=== PATIENT | male | born 2000 | race Caucasian/White ===

== ENCOUNTER 2024-05-09 11:25 | Emergency (ER) | payer OTHER ==
[~2024-05-09] VITALS: Ht 172.7 cm; Wt 90.7 kg
[~2024-05-09 11:25] MED LIST: AMOX250 PO; AZIT200SU PO; Amoxicillin875 MG PO; CEPH500 PO; CODACEE120 PO; CRUTCH3 USE; IBUP100S PO; Imitrex25 MG PO; TOPI25 PO
[2024-05-09 11:35] VITALS: BP 160/110
[2024-05-09] MEDS ORDERED: HYDROCODONE-AC1 EA13 PO (12:29)
[2024-05-09] MEDS ORDERED: AMOX500 PO (12:29)
== END 2024-05-09 13:16 | disposition home or self-care (01) ==
LOC: ER 11:25
DX: K04.7 Periapical abscess without sinus (principal); Z79.899 Other long term (current) drug therapy
CPT/HCPCS: 99282